=== PATIENT | female | born 1955 | race Caucasian/White ===

== ENCOUNTER 2018-09-26 11:48 | Emergency (ER) | END 2018-09-26 16:35 | disposition home or self-care (01) ==

== ENCOUNTER 2019-06-19 13:11 | Emergency (ER) | payer BC ==
[~2019-06-19] VITALS: Ht 157.5 cm; Wt 54.5 kg
[~2019-06-19 13:11] MED LIST: DICY10CA40 ORAL; DOCU-144 PO; GABA300C16 PO; IBUP-1542 PO; SENN-120 PO; TRAZ-111 PO
[2019-06-19 13:18] VITALS: Ht 157.5 cm; Wt 54.5 kg
[2019-06-19] MEDS ORDERED: ONDANSETRON 4 MG INJ IV STA (13:20)
[2019-06-19] MEDS ORDERED: morphine 4 MG/ML VIAL IV STA (13:20)
[2019-06-19] MEDS ORDERED: SOD CHLORIDE 0.9% 1,000 ML IV STA ×2 (13:20→15:04)
[2019-06-19] MEDS ORDERED: FAMOTIDINE 20 MG INJ IV STA (13:20)
[2019-06-19] MEDS ORDERED: DICYCLOMINE 10 MG CAP PO ONE (13:30)
[2019-06-19] MEDS ORDERED: KETOROLAC 30 MG INJ IV STA (14:08)
--- NOTE | 2019-06-19 14:11 | ERD ---
ER Documentation Chief Complaint Chief Complaint BIB [id number] for AP x1 month w/ n/v/d, worse today. hx of IBS HPI This is a 63-year-old female that presented to the emergency department brought in by EMS for abdominal pain. The patient indicates that she has a history of IBS. She has been experiencing intermittent abdominal pain for 1 month. However over the past 24 hours she states the abdominal pain has worsened . is a severe cramping-like sensation. It is still intermittent. It is exacerbated when she experiences nonbloody nonbilious emesis. She indicates she is had roughly 5 episodes of nonbloody nonbilious emesis in the past 24 hours. She also indicates that she has had loose greenish stools in the past 24 hours. The abdominal cramping is worsened just prior to the stooling. No recent travel. No prolonged immobilization. No recent hospitalizations or antibiotic use. No fevers or shaking no chills. The patient has been in a treatment center for over 7 years and therefore does not take narcotics. She did not take any analgesic medications prior to arrival. No chest pain or pressure. The patient does indicate she is had mild shortness of breath over the past several days. She denies any paroxysmal nocturnal dyspnea. No swelling of her lower extremities or calf tenderness. Shortness of breath is with exertion. No frequency urgency or dysuria ROS All systems reviewed and are negative except as per history of present illness. Medications Home Meds Reported Medications Dicyclomine HCl (Dicyclomine HCl) 10 Mg Capsule, 1 CAP ORAL DAILY 06/19/19 Gabapentin* (Gabapentin*) 300 Mg Capsule, 300 MG PO TID, #90 CAP 06/19/19 Discontinued Scripts Trazodone Hcl* (Trazodone Hcl*) 50 Mg Tablet, 50 MG PO QHS, #14 TAB Prov:SUNITA BOSWELL MD 09/26/18 Sennosides* (Senna Lax*) 8.6 Mg Tablet, 1 TAB PO DAILY, #30 TAB Prov:SUNITA BOSWELL MD 09/26/18 Docusate Sodium* (Colace*) 100 Mg Capsule, 100 MG PO TID, #30 CAP Prov:SUNITA BOSWELL MD 09/26/18 Ibuprofen* (Motrin*) 600 Mg Tab, 600 MG PO Q6H PRN for PAIN AND OR ELEVATED TEMP, #30 TAB Prov:SUNITA BOSWELL MD 09/26/18 Allergies Allergies: Coded Allergies: No Known Allergy (Unverified , 06/19/19) PMhx/Soc History of Surgery: Yes (brain sx (for bleed), c section) Anesthesia Reaction: No Hx Neurological Disorder: No Hx Respiratory Disorders: No Hx Cardiac Disorders: No Hx Psychiatric Problems: No Hx Miscellaneous Medical Probl: Yes (IBS) Hx Alcohol Use: No (hx of ETOH abuse,. sober since 1999) Hx Substance Use: No (hx of drug abuse, sober since 2011) Hx Tobacco Use: Yes Physical Exam Vitals Vital Signs Date Temp Pulse Resp B/P (MAP) Pulse Ox O2 O2 Flow FiO2 Time Delivery Rate 06/19/19 55 12 123/61 100 Nasal 16:00 (81) Cannula 06/19/19 62 18 139/61 100 Nasal 15:06 (87) Cannula 06/19/19 98.1 60 16 130/54 98 13:18 (79) Physical Exam Constitutional:Well-developed. Well-nourished. Patient tearful and appeared to be in a significant amount discomfort secondary to pain HEENT:Normocephalic. Atraumatic.Pupils were equal round reactive to light. Moist mucous membranes.No tonsillar exudates. Neck: No nuchal rigidity. No lymphadenopathy. No posterior cervical spine tenderness or step-offs. Respiratory: Not using accessory muscles of respiration.Lungs were clear to auscultation bilaterally. No rhonchi. No rales. No wheezing. Cardiovascular: Regular rate regular rhythm.No murmurs. No rubs were appreciated.S1, S2 normal. Distal pulses are palpable 2+ bilaterally. GI: Abdomen was soft. Left lower quadrant tenderness. Non Distended. No pulsatile abdominal masses or bruits. No rebound. No guarding. Hyperactive bowel sounds Muscle skeletal: Full range of motion of both the upper and lower extremities bilaterally.Normal muscle tone.No assymetrical calf tenderness or swelling. Skin: No petechia, no purpura. No lesions on the palms or the soles of the feet. No maculopapular rash. NEURO: Patient was alert, awake, orientated x3.No facial droop. Gait observed and normal with no ataxia.Speech had regular rate and rhythm. No focal neurological deficits. Result Diagram: 06/19/19 1348 06/19/19 1348 Results 24 hrs Laboratory Tests Test 06/19/19 13:45 06/19/19 13:48 Phosphorus Level 2.4 mg/dl Magnesium Level 1.9 mg/dl B-Type Natriuretic Peptide 4690 PG/ML White Blood Count 7.0 10^3/ul Red Blood Count 3.31 10^6/ul Hemoglobin 9.4 g/dl Hematocrit 29.6 % Mean Corpuscular Volume 89.4 fl Mean Corpuscular Hemoglobin 28.4 pg Mean Corpuscular Hemoglobin Concent 31.8 g/dl Red Cell Distribution Width 15.1 % Platelet Count 340 10^3/UL Mean Platelet Volume 9.5 fl Immature Granulocytes % 0.400 % Neutrophils % 70.3 % Lymphocytes % 19.6 % Monocytes % 9.6 % Eosinophils % 0.0 % Basophils % 0.1 % Nucleated Red Blood Cells % 0.0 /100WBC Immature Granulocytes # 0.030 10^3/ul Neutrophils # 4.9 10^3/ul Lymphocytes # 1.4 10^3/ul Monocytes # 0.7 10^3/ul Eosinophils # 0.0 10^3/ul Basophils # 0.0 10^3/ul Nucleated Red Blood Cells # 0.0 10^3/ul Prothrombin Time 14.3 Sec Prothrombin Time Ratio 1.1 INR International Normalized Ratio 1.10 Activated Partial Thromboplast Time 37.9 Sec Sodium Level 136 mmol/L Potassium Level 3.2 mmol/L Chloride Level 102 mmol/L Carbon Dioxide Level 33 mmol/L Anion Gap 1 Blood Urea Nitrogen 8 mg/dl Creatinine 0.83 mg/dl Est Glomerular Filtrat Rate mL/min > 60 mL/min Glucose Level 123 mg/dl Calcium Level 8.4 mg/dl Total Bilirubin 0.4 mg/dl Direct Bilirubin 0.00 mg/dl Indirect Bilirubin 0.4 mg/dl Aspartate Amino Transf (AST/SGOT) 31 IU/L Alanine Aminotransferase (ALT/SGPT) 26 IU/L Alkaline Phosphatase 61 IU/L Troponin I 0.196 ng/ml Total Protein 5.9 g/dl Albumin 3.0 g/dl Globulin 2.90 g/dl Albumin/Globulin Ratio 1.03 Amylase Level < 30 U/L Lipase < 10 U/L Current Medications Medications Dose Sig/Alejandra Start Time Status Last (Trade) Ordered Route PRN Stop Time Admin Dose Reason Admin Sodium 1,000 ml @ Q1H STAT 06/19/19 DC 06/19/19 Chloride 1,000 mls/hr IV 13:20 13:53 06/19/19 14:19 Morphine 4 mg ONCE STAT 06/19/19 Cancel Sulfate IV 13:20 (morphine) 06/19/19 13:21 Ondansetron 4 mg ONCE STAT 06/19/19 DC 06/19/19 HCl (Zofran IV 13:20 13:53 Inj) 06/19/19 13:22 Famotidine 20 mg ONCE STAT 06/19/19 DC 06/19/19 (Pepcid Iv) IV 13:20 13:53 06/19/19 13:22 Dicyclomine 20 mg ONCE ONCE 06/19/19 DC 06/19/19 HCl PO 13:30 13:53 (Bentyl) 06/19/19 13:31 Ketorolac 30 mg ONCE STAT 06/19/19 DC 06/19/19 Tromethamine IV 14:08 14:20 (Toradol) 06/19/19 14:09 Sodium 100 ml @ ud STK-MED 06/19/19 DC Chloride ONCE .ROUTE 14:32 06/19/19 14:33 Iohexol 150 ml STK-MED 06/19/19 DC (Omnipaque ONCE .ROUTE 14:32 300mg/ ml) 06/19/19 14:33 Amiodarone 100 ml ONCE STAT 06/19/19 DC 06/19/19 HCl IV* 14:56 15:42 (Cordarone 06/19/19 15:00 150mg/ D5W Bolus) Aspirin 325 mg ONCE STAT 06/19/19 DC 06/19/19 (Aspirin) PO 14:56 15:47 06/19/19 15:00 Magnesium 50 ml @ 25 ONCE ONCE 06/19/19 06/19/19 Sulfate mls/hr IVPB 15:30 15:23 06/19/19 17:29 Sodium 1,000 ml @ Q1H STAT 06/19/19 DC 06/19/19 Chloride 1,000 mls/hr IV 15:04 15:42 06/19/19 16:03 Procedures/MDM This patient presented to the emergency department with abdominal pain and was seen and evaluated by myself. My differential diagnosis included but was not limited to abdominal aortic aneurysm, appendicitis, pancreatitis, perforated peptic ulcer, perforated viscus, Boerhaave's syndrome or visceral pain such as diverticulitis, DKA, esophagitis, hepatitis or bowel obstruction. The patient was placed on a pvc monitor, continuous pulse oximetry, and IV access was established by nursing staff. The patient was given intravenous fluids Toradol and Zofran. She was also given Bentyl to help with her abdominal cramping thought to be secondary to diarrhea. Patient has no risk factors for C. difficile. 12 Lead EKG tracing ordered and reviewed by myself showed: Sinus bradycardia 54 bpm and no arrhythmia. OK interval normal. QRS duration normal. No ST segment elevation No ST segment depression. T wave inversion in all leads. QT interval was prolonged at 6 and 37 ms. The patient's troponin was elevated 0.196. Chest radiograph showed no infiltrates or pneumothorax no pulmonary vascular congestion. The patient had gone to the CT scan to undergo contrast-induced scan of her abdomen due to her symptoms. The patient was talking prior to going to the CT scan and still only complained of abdominal pain. The satellite technician had administered the IV contrast and shortly after he noticed that the patient began shaking and became unresponsive. TOOTIE HAMMOND was called to the CT scanner. Immediately arrived at the CT scan and found the patient cyanotic in ventricular fibrillation and she been placed on a monitor at 1442. The patient immediately had CPR being given by nursing staff. The patient underwent defibrillation and immediately went into a normal sinus rhythm. The patient was cyanotic and had bag mask ventilation being performed. The patient was now breathing over the defibrillation. At 1450 the patient was now alert awake oriented x3. The patient was complaining that she was unable to see and had bilateral blindness. This lasted for roughly 10 minutes and then completely spontaneously resolved and was thought to be secondary to the CPR and decreased cerebral vascular access due to the watershed area. Repeat EKG showed a normal sinus rhythm at 60 bpm. OK interval normal QRS du ration was normal. QT was no longer prolonged. No T wave inversion. The patient had been given an amiodarone bolus and also 2 g of magnesium as I could not rule out torsades upon review of the tracing taken from the pvc monitor during her ventricular fibrillation. The patient did not meet criteria for hypothermia given that she was now at her baseline mental status. Given that the cardiac Public Relations Consultant is currently down I did speak with the tone artist apprentice Dr. Albrecht agreed to arrange for transfer to [facility] to undergo PCI. The patient's BNP was elevated. I did feel her shortness of breath could be a component of congestive heart failure. The patient was transferred via 911 to undergo emergent PCI. Airway was intact. Patient remained alert awake oriented x3. Critical Care: Time: 76 minutes Treatments/Evaluations: Close monitoring and treatment of unstable vital signs, cardiorespiratory, and neurologic status, while maintaining tight balance of fluid, respiratory, and cardiac interventions. Time does not include performing any of the above billable procedures. There is no signs of an allergic reaction from the contrast. There is no angioedema macroglossia. CT scan of the abdomen reviewed by the radiologist indicate the followin. Gallbladder with mild thickening of the beyer and mild pericholecystic fluid. No gross radiopaque gallstones. Cannot exclude possibility of mild cholecystitis. Consider correlation with ultrasound if clinically indicated. 2. Limited evaluation secondary to moderate amount of motion artifact. The spleen and pancreas are poorly visualized. 3. No evidence of renal/ureteric calculi or obstructive uropathy. 4. No gross evidence of bowel obstruction. Mild constipation. 5. Nonspecific free fluid within the pelvis. Findings can be physiologic. No significant pelvic lymphadenopathy. Departure Diagnosis: Primary Impression: Ventricular fibrillation Additional Impressions: Signs of return of spontaneous circulation Abdominal pain Abdominal location: left lower quadrant Qualified Codes: R10.32 - Left lower quadrant pain Condition: Serious KARSTEN ALCANTAR MD Jun 19, 2019 14:11
[2019-06-19] MEDS ORDERED: IOHEXOL 300MG/ML 150 ML BTL ONE (14:32)
[2019-06-19] MEDS ORDERED: SOD CHLORIDE 0.9% 100 ML ONE (14:32)
[2019-06-19] MEDS ORDERED: ASPIRIN 325 MG TAB PO STA (14:56)
[2019-06-19] MEDS ORDERED: AMIODARONE 150MG/D5W BOLUS IV* STA (14:56)
[2019-06-19] MEDS ORDERED: MAGNESIUM SULFATE 2 GM/50 ML 50 ML IVPB ONE (15:30)
--- NOTE | 2019-06-19 15:59 | RADRPT ---
Vent Rate: 54 bpm RR Interval: 1160 msec [place] Interval: 157 msec QRS Duration: 111 msec QT Interval: 637 msec QTC Interval: 591 msec P-R-T [place]: 79 - 82 - -82 degrees Sinus rhythm...normal P axis, V-rate 50- 99 Atrial premature complexes...SV complexes w/ short R-R intvls Probable left atrial enlargement...P >50mS, <-0.10mV V1 Abnormal T, consider ischemia, diffuse leads...T <-0.20mV, ant/lat/inf Prolonged QT interval...QTc >500mS Electronically Signed By: Sharad Robison
[2019-06-19 16:00] VITALS: BP 123/61; PULSE 55; RESP 12
== END 2019-06-19 17:13 | disposition short-term general hospital (02) ==
LOC: E/R 13:11
DX: I49.01 Ventricular fibrillation (principal); R10.32 Left lower quadrant pain; Z87.891 Personal history of nicotine dependence
CPT/HCPCS: 71045; 74177; 80053; 82150; 83690; 83735; 83880; 84100; 84484; 85025; 85610; 85730; 93005; 96374; 96375; 99285; J0282; J1885; J2405; J3475; J7030; Q9967; Z7610; J2270